=== PATIENT | female | born 1995 | race Two or more races ===

== ENCOUNTER 2016-12-12 05:13 | Emergency (ER) | payer OTHER ==
[~2016-12-12] VITALS: Ht 162.6 cm; Wt 59.0 kg
--- NOTE | 2016-12-12 05:56 | Emergency Room Report ---
History of Present Illness General Chief Complaint: Female Urogenital Problems Source: Patient Present Illness [facility] This is a 21-year-old female who is 2 para 1 with one miscarriage. She is approximately 18 weeks . She already has outpatient followup and ultrasound. She scheduled for another visit today. She woke up today to use or restroom and when she wiped she noted some spotting. Denies any pain. No fever or chills. No nausea vomiting. No dysuria frequency. No other complaint. With the miscarriage she did not receive any RhoGAM shot Allergies: Coded Allergies: No Known Allergies (Unverified , 12/12/16) Patient History Past Medical History: see triage record, old chart reviewed Past Surgical History: none, other Pertinent Family History: none Social History: Reports: smoking Now: No Immunizations: other Reviewed Nursing Documentation: PMH: Agreed, PSxH: Agreed Nursing Documentation-PMH Past Medical History: No Stated History Review of Systems Eye: Denies: eye pain, blurred vision ENT: Denies: ear pain, nose congestion, throat swelling Respiratory: Denies: cough, shortness of breath Cardiovascular: Denies: chest pain, palpitations Gastrointestinal: Denies: abdominal pain, diarrhea, nausea, vomiting Musculoskeletal: Denies: back pain, joint pain Skin: Denies: rash Neurological: Denies: headache, numbness Endocrine: Denies: increased thirst, increased urine Hematologic/Lymphatic: Denies: easy bruising All Other Systems: negative except mentioned in HPI Physical Exam Vital Signs Date Time Temp Pulse Resp B/P (MAP) Pulse Ox O2 Delivery O2 Flow Rate FiO2 12/12/16 05:20 97.9 70 16 140/80 99 Room Air vitals normal Sp02 EP Interpretation: reviewed, normal General Appearance: well appearing, no apparent distress, alert Head: normocephalic, atraumatic Eyes: bilateral eye PERRL, bilateral eye EOMI ENT: hearing grossly normal, normal pharynx Neck: full range of motion, supple, no meningismus Respiratory: chest non-tender, lungs clear, normal breath sounds Cardiovascular #1: regular rate, rhythm, no murmur Gastrointestinal: normal bowel sounds, non tender, soft, no mass, no organomegaly, no bruit, non-distended, other - Gravid Musculoskeletal: back normal, gait/station normal, normal range of motion Psychiatric: mood/affect normal Skin: warm/dry Medical Decision Making Diagnostic Impression: Primary Impression: Threatened in second trimester ER Course patient presents with spotting. No evidence of ectopic. My bedside ultrasound showed a live IUP with good movement and heart rate. Will check urinalysis to make sure there is no infection. Based on clinical exam and history, I suspect patient is Rh+. She said that she had blood work done but does not know the results. she is Scheduled for followup at 8 AM today. Last Vital Signs Date Time Temp Pulse Resp B/P (MAP) Pulse Ox O2 Delivery O2 Flow Rate FiO2 12/12/16 05:20 97.9 70 16 140/80 99 Room Air Status: improved Disposition: HOME, SELF-CARE Condition: Stable Additional Instructions: Followup with the OB as scheduled. Return if symptom worsen. We will call you if urine culture is positive. MICHAEL NAJERA M.D. Dec 12, 2016 05:56
[2016-12-12 06:10] LABS: KETONES,URINE NEGATIVE (NEGATIVE); NITRITE,URINE NEGATIVE (NEGATIVE); PH,URINE 7 (4.5-8.0); PROTEIN,URINE NEGATIVE (NEGATIVE); UROBILINOGEN,URINE NORMAL MG/DL (0.0-1.0)
[2016-12-12 06:11] LABS: APPEARANCE,URINE SLIGHTLY CLOUDY; LEUKOCYTE ESTERASE ,URINE 1+ (NEGATIVE); RBC,URINE 0-2 /HPF (0 - 2); WBC,URINE 0-2 /HPF (0 - 2)
[2016-12-12 06:12] LABS: AMORPHOUS SEDIMENT,UR MANY /LPF; BACTERIA,URINE FEW /HPF; SQUAMOUS EPITHELIAL CELL,UR FEW /LPF (NONE/OCC)
[2016-12-12 06:22] VITALS: BP 140/80
== END 2016-12-12 06:24 | disposition home or self-care (01) ==
LOC: EMR 05:35
DX: O20.0 Threatened abortion (principal); Z3A.18 18 weeks gestation of pregnancy
CPT/HCPCS: 81003; 99282

== ENCOUNTER 2018-09-17 16:01 | Emergency (ER) | payer MEDICAID, OTHER ==
[~2018-09-17] VITALS: Ht 154.9 cm; Wt 63.5 kg
[2018-09-17] MEDS ORDERED: PRENA1 CHEW TA1.4 MG PO (16:10)
--- NOTE | 2018-09-17 16:33 | NUR ---
ED Nurse Note: Patient presents to ER due to vaginal bleeding, red colored since 1300 today; reports no abdminal cramping or any other pain. Patient awake, alert, oriented x 4. Regular, unlabored breathing noted. Patient had 3G, 1P and 1 miscarriage. Voided yellow urine.
--- NOTE | 2018-09-17 16:35 | NUR ---
ED Nurse Note: Venipunture to left AC performed using 22g. Patien tolerated the procedure with minimal discomfort.
[2018-09-17 16:43] LABS: BASOPHILS % (AUTO) 0.5 % (0.0-2.0); EOSINOPHILS % (AUTO) 0.6 % (0.0-3.0); HEMATOCRIT 36.6 % (37.0-47.0); HEMOGLOBIN 12.3 G/DL (12.0-16.0); LYMPHOCYTES % (AUTO) 16.3 % (20.0-45.0); MEAN CORPUSCULAR VOLUME 81 FL (80-99); MONOCYTES % (AUTO) 4.9 % (1.0-10.0); NEUTROPHILS % (AUTO) 77.7 % (45.0-75.0); PLATELET COUNT 376 K/UL (150-450); RED BLOOD COUNT 4.55 M/UL (4.20-5.40); RED CELL DISTRIBUTION WIDTH 12.9 % (11.6-14.8); WHITE BLOOD COUNT 15.2 K/UL (4.8-10.8)
[2018-09-17 16:45] LABS: APPEARANCE,URINE CLEAR; BILIRUBIN, URINE NEGATIVE (NEGATIVE); GLUCOSE, URINE (UA) NEGATIVE (NEGATIVE); KETONES,URINE 2+ (NEGATIVE); LEUKOCYTE ESTERASE ,URINE 1+ (NEGATIVE); NITRITE,URINE NEGATIVE (NEGATIVE); PH,URINE 6 (4.5-8.0); PROTEIN,URINE 2+ (NEGATIVE); UROBILINOGEN,URINE NORMAL MG/DL (0.0-1.0)
[2018-09-17 16:46] LABS: COLOR,URINE YELLOW
[2018-09-17 17:11] LABS: ANION GAP 12 mmol/L (5-15); BLOOD UREA NITROGEN 7 mg/dL (7-18); CALCIUM 9.4 MG/DL (8.5-10.1); CARBON DIOXIDE 24 MMOL/L (21-32); CHLORIDE 101 MMOL/L (98-107); CREATININE 0.6 MG/DL (0.55-1.30); POTASSIUM 4.5 MMOL/L (3.5-5.1); SODIUM 137 MMOL/L (136-145)
[2018-09-17 17:16] LABS: ALANINE AMINOTRANSFERASE 30 U/L (12-78); ALBUMIN 3.3 G/DL (3.4-5.0); ALBUMIN/GLOBULIN RATIO 0.8 (1.0-2.7); ALKALINE PHOSPHATASE 89 U/L (46-116); ASPARTATE AMINO TRANSFERASE 16 U/L (15-37); BILIRUBIN,TOTAL 0.2 MG/DL (0.2-1.0)
--- NOTE | 2018-09-17 17:20 | NUR ---
ED Nurse Note: Patient off to u/s exam. Reports no abdominal pain.
--- NOTE | 2018-09-17 18:10 | Diagnostic Imaging Report ---
EXAM: US Abdomen Complete CLINICAL HISTORY: PAIN TECHNIQUE: Real-time ultrasound of the abdomen (complete) with image documentation. COMPARISON: No relevant prior studies available. FINDINGS: Liver: Liver length is 14.7 cm. Parenchymal is normal in appearance. No intrahepatic bile duct dilation. Gallbladder: Unremarkable. No gallstones. Common bile duct: Common bile duct caliber is 3 mm. No stones. No dilation. Pancreas: Unremarkable as visualized. Kidneys: Right kidney length is 12.2 cm. Left kidney length is 12.1 cm. No stones. No hydronephrosis. Spleen: The splenic length is 9.8 cm. Aorta: The abdominal aorta has a normal caliber. No aneurysm. Inferior vena cava: Unremarkable. IMPRESSION: No acute sonographic findings.
--- NOTE | 2018-09-17 18:15 | Diagnostic Imaging Report ---
EXAM: US First Trimester, Transabdominal US , Transvaginal CLINICAL HISTORY: PAIN TECHNIQUE: Real-time transabdominal and transvaginal obstetrical ultrasound of the maternal pelvis and a first trimester with image documentation. Transvaginal imaging was used for better evaluation of the fetus and adnexa. COMPARISON: No relevant prior studies available. FINDINGS: Gestation: Single, live intrauterine is identified. [place]- rump length is 4.7 cm estimated 11 week 2 day gestational age, range 10 weeks 6 days to 11 weeks 5 days. heart rate currently measures 179 bpm. Placenta/amniotic fluid: There is a perigestational hypoechoic, nonvascular focus adjacent to the gestational sac measuring approximately 3.3 x 2.0 x 1.9 cm with slight internal complexity, favoring subchorionic hemorrhage. Uterus/cervix: Uterine length 10.4 cm. No myometrial mass. Ovaries: The right ovary measures 3.2 x 1.8 x 2.2 cm and the left ovary measures 3.7 x 2.2 x 2.5 cm. Normal flow is noted bilaterally. There is a corpus luteal cyst within the left ovary. Free fluid: Mild free fluid is present. IMPRESSION: 1. Single, live intrauterine estimated 11 week 2 day gestational age. 2. Hypoechoic focus adjacent to the gestational sac most likely representing a prominent subchorionic hemorrhage measuring 3.3 x 2.0 x 1. 9 cm. Recommend attention on follow-up imaging. 3. Mild free fluid. <MYCVCSECTION> [employer] 09/17/18 18:27 Verify Receipt Verified receipt with JOY Garcia on 09/17 18:27 (-07:00)
--- NOTE | 2018-09-17 18:42 | Emergency Room Report ---
History of Present Illness General Chief Complaint: Complications Source: Patient Present Illness HPI 23-year-old female A1 with no significant past medical history here complaining of 1 day of abdominal cramping and vaginal clotting. Patient reports that she was sitting at home as she noticed blood clots coming out of the vaginal area followed by 5 out of 10 pain in suprapubic area without radiation. Patient continued to have clotting however at this time denies any abdominal pain, nausea vomiting, syncope, fever and chills, urinary frequency and dysuria. Patient reports that she often lifts her 1 year and 1/2-year-old son has history of 1 spontaneous miscarriage with her first 8 weeks. Denies dizziness, headache, chest pain or shortness of breath patient. Patient last saw her OB 3 weeks ago and everything was within normal limits. Patient is currently taking her vitamins and folic acid. Denies alcohol use, smoking, drug use. Patient is in no distress Allergies: Coded Allergies: No Known Allergies (Unverified , 12/12/16) Patient History Past Medical History: see triage record Past Surgical History: unable to obtain Pertinent Family History: none Last Menstrual Period: 07/02/18 Now: Yes : 3 Para: 1 Immunizations: UTD Reviewed Nursing Documentation: PMH: Agreed; PSxH: Agreed Nursing Documentation-PMH Past Medical History: No Stated History Review of Systems All Other Systems: negative except mentioned in HPI Physical Exam Vital Signs Date Time Temp Pulse Resp B/P (MAP) Pulse Ox O2 Delivery O2 Flow Rate FiO2 09/17/18 16:08 98.2 101 18 125/76 (92) 98 Room Air Sp02 EP Interpretation: reviewed, normal General Appearance: normal inspection, well appearing, no apparent distress, alert, GCS 15 Head: normocephalic, atraumatic Eyes: bilateral eye normal inspection, bilateral eye PERRL ENT: normal ENT inspection, normal pharynx Neck: normal inspection, full range of motion, supple Respiratory: normal inspection, lungs clear, no rhonchi, no wheezing Cardiovascular #1: normal inspection, regular rate, rhythm, no murmur, normal capillary refill Gastrointestinal: normal inspection, non tender, soft, no mass, no bruit, non- distended, no guarding, no rebound Rectal: deferred Genitourinary: no CVA tenderness Musculoskeletal: normal inspection, back normal Neurologic: normal inspection, alert, oriented x3 Psychiatric: normal inspection, judgement/insight normal Skin: normal inspection, normal color, no rash, warm/dry Lymphatic: normal inspection, no adenopathy Medical Decision Making PA Attestation All my diagnosis and treatment plans were reviewed ad discussed with my supervising physician Dr. Rueda Diagnostic Impression: Primary Impression: Vaginal bleeding during Additional Impressions: Subchorionic hemorrhage in first trimester UTI in ER Course 23-year-old female A1 with no significant past medical history here complaining of 1 day of abdominal cramping and vaginal clotting. Patient reports that she was sitting at home as she noticed blood clots coming out of the vaginal area followed by 5 out of 10 pain in suprapubic area without radiation. Patient continued to have clotting however at this time denies any abdominal pain, nausea vomiting, syncope, fever and chills, urinary frequency and dysuria. Patient reports that she often lifts her 1 year and 1/2-year-old son has history of 1 spontaneous miscarriage with her first 8 weeks. Denies dizziness, headache, chest pain or shortness of breath patient. Patient last saw her OB 3 weeks ago and everything was within normal limits. Patient is currently taking her vitamins and folic acid. Denies alcohol use, smoking, drug use. Patient is in no distress Ddx considered but are not limited to: appendicitis, cholycisitis, gastritis, gasthroentritis, UTI, pylonephritis, SBO, diverticulitis, influenza with GI manifestation, ME, complication with , PID Vital signs: are WNL, pt. is afebrile H&PE are most consistent with: subchornianic hemohrrage, vaginal bleeding during , UTI urine ORDERS: CBC, CMP, UA, urine , beta hCG quantitative, OB ultrasound, abdominal ultrasound ED INTERVENTIONS: None required at this time. DISCHARGE: At this time pt. is stable for d/c to home. Will provide printed patient care instructions, and any necessary prescriptions. Care plan and follow up instructions have been discussed with the patient prior to discharge. Follow-up with [facility] in 24 to 48 hours for repeat ultrasound and beta hCG avoid lifting heavy objects take Tylenol as needed for pain Leukocytes positive and UA, white blood cells 15, neutrophils 77 CT/MRI/US Diagnostic Results CT/MRI/US Diagnostic Results #1: Imaging Test Ordered: OB ultrasound Impression FINDINGS: Gestation: Single, live intrauterine is identified. [place]-rump length is 4.7 cm estimated 11 week 2 day gestational age, range 10 weeks 6 days to 11 weeks 5 days. heart rate currently measures 179 bpm. Placenta/amniotic fluid: There is a perigestational hypoechoic, nonvascular focus adjacent to the gestational sac measuring approximately 3.3 x 2.0 x 1.9 cm with slight internal complexity, favoring subchorionic hemorrhage. Uterus/cervix: Uterine length 10.4 cm. No myometrial mass. Ovaries: The right ovary measures 3.2 x 1.8 x 2.2 cm and the left ovary measures 3.7 x 2.2 x 2.5 cm. Normal flow is noted bilaterally. There is a corpus luteal cyst within the left ovary. Free fluid: Mild free fluid is present. IMPRESSION: 1. Single, live intrauterine estimated 11 week 2 day gestational age. 2. Hypoechoic focus adjacent to the gestational sac most likely representing a prominent subchorionic hemorrhage measuring 3.3 x 2.0 x 1.9 cm. Recommend attention on follow-up imaging. 3. Mild free fluid. CT/MRI/US Diagnostic Results #2: Imaging Test Ordered: Abdominal ultrasound Impression FINDINGS: Liver: Liver length is 14.7 cm. Parenchymal is normal in appearance. No intrahepatic bile duct dilation. Gallbladder: Unremarkable. No gallstones. Common bile duct: Common bile duct caliber is 3 mm. No stones. No dilation. Pancreas: Unremarkable as visualized. Kidneys: Right kidney length is 12.2 cm. Left kidney length is 12.1 cm. No stones. No hydronephrosis. Spleen: The splenic length is 9.8 cm. Aorta: The abdominal aorta has a normal caliber. No aneurysm. Inferior vena cava: Unremarkable. IMPRESSION: No acute sonographic findings. Last Vital Signs Date Time Temp Pulse Resp B/P (MAP) Pulse Ox O2 Delivery O2 Flow Rate FiO2 09/17/18 16:08 98.2 101 18 125/76 (92) 98 Room Air Disposition: HOME, SELF-CARE Condition: Stable Scripts Cephalexin* (KEFLEX*) 500 Mg Capsule 500 MG ORAL EVERY 6 HOURS for 7 Days, #28 CAP Prov: Ana Frost 09/17/18 Referrals: NOT CHOSEN IPA/,REFERRING (PCP) Patient Instructions: Abdominal Pain During , Abnormal Uterine Bleeding, Urinary Tract Infection, [id number] Additional Instructions: Follow-up with your OB specialist in 24 to 48 hours for repeat ultrasound and repeat beta hCG avoid lifting heavy objects you can take low doses of Tylenol for pain start your antibiotics today if syncope, faint, fever and chills return to the emergency room Ana Frost Sep 17, 2018 18:42
[2018-09-17] MEDS ORDERED: CEPHALEXIN500 MG ORAL (18:43)
[2018-09-17 18:50] VITALS: BP 108/71
--- NOTE | 2018-09-17 18:50 | NUR ---
ED Nurse Note: Patient is being discharged from medical care. D/C instruction and prescription given to patient. All questions were answered. Patient ambulated out with steady gait with all her belongins.
== END 2018-09-17 18:50 | disposition home or self-care (01) ==
LOC: EMR 17:00
DX: O46.91 Antepartum hemorrhage, unspecified, first trimester (principal); O23.41 Unspecified infection of urinary tract in pregnancy, first trimester; Z3A.11 11 weeks gestation of pregnancy
CPT/HCPCS: 36415; 76700; 76801; 76830; 80053; 81001; 81025; 84702; 85025; 86900; 86901; 99284